=== PATIENT | female | born 1965 | race Caucasian/White ===

== ENCOUNTER 2016-11-06 22:39 | Emergency (ER) | payer MEDICARE ==
[~2016-11-06] VITALS: Ht 167.6 cm; Wt 77.3 kg
[2016-11-06 22:44] VITALS: BP 178/96; PULSE 94; RESP 18; O2SAT 94
[2016-11-06 23:22] VITALS: BP 150/91; PULSE 88; RESP 19; O2SAT 93
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
[2016-11-07 00:15] LABS: BASOPHILS % (AUTO) 0.7 % (0-3); EOSINOPHILS % (AUTO) 2.2 % (0-5); MONOCYTES % (AUTO) 9.4 % (4-12); Mean Corpuscular Hemoglobin 32.7 pg (27.0-35.0); Mean Corpuscular Volume 93.5 fL (81-100); NEUTROPHILS % (AUTO) 59.6 % (40-74); Platelet Count 306 bil/L (150-400)
[2016-11-07 01:40] VITALS: BP 155/90; PULSE 82; RESP 18; O2SAT 94
[2016-11-07 01:46] LABS: APPEARANCE,URINE CLOUDY (CLEAR,HAZY); COLOR,URINE RED (YELLOW); OCCULT BLOOD,URINE LARGE (NEGATIVE); UROBILINOGEN,URINE NORMAL (NORMAL)
--- NOTE | 2016-11-07 08:08 | DRSVH ---
PROCEDURE: X-RAY CHEST ONE VIEW, PORTABLE ([id number]) INDICATIONS: seizure TECHNIQUE: One view of the chest was acquired. COMPARISON: None. FINDINGS: Surgical changes and devices: None. Lungs and pleura: No pleural effusions or pneumothorax. Lungs are clear. Lung apices are not comple tely visualized and cannot be evaluated Mediastinum: Mediastinal contours appear normal. Heart size is normal. Bones and chest wall: No suspicious bony lesions. Overlying soft tissues appear unremarkable. IMPRESSION: No acute cardiopulmonary disease process identified in the visualized lungs. Dictated by: Juliet Christine MD, PhD on 11/07/2016 at 8:06 Approved by: Juliet Christine MD, PhD on 11/07/2016 at 8:07
--- NOTE | 2016-11-07 08:25 | DRSVH ---
PROCEDURE: CT BRAIN WITHOUT CONTRAST ([id number]) INDICATIONS: seizure, hit head TECHNIQUE: Noncontrast 4.5 mm thick angled axial sections acquired from the foramen magnum to the vertex, with c oronal reformats. COMPARISON: None. FINDINGS: Image quality: Excellent. CSF spaces: Basal cisterns are patent. No extra-axial fluid collections. Ventricles are normal in size and shape. Brain: No midline shift. No intracranial masses or hemorrhage. Kaur-white matter interface is norm al. Skull and face: Calvarium and visualized facial bones are intact, without suspicious lesions. There is subcutaneous hematoma in the posterior right parietal region. Sinuses: Visualized sinuses and mastoids are clear. IMPRESSION: No acute intracranial abnormality. Dictated by: Richard Latham M.D. on 11/07/2016 at 8:21 this report corresponds to the findings of e preliminary NSR report. Approved by: Richard Latham M.D. on 11/07/2016 at 8:23
== END 2016-11-07 01:45 | disposition home or self-care (01) ==
LOC: SED 22:39 → EDBD 22:39 → SED 11-07 01:45
DX: R56.9 Unspecified convulsions (principal); S00.03XA Contusion of scalp, initial encounter; W01.0XXA Fall on same level from slipping, tripping and stumbling without subsequent striking against object, initial encounter; Y93.89 Activity, other specified; Y99.8 Other external cause status; Y92.013 Bedroom of single-family (private) house as the place of occurrence of the external cause; I10 Essential (primary) hypertension; E78.5 Hyperlipidemia, unspecified; E07.9 Disorder of thyroid, unspecified; Z88.5 Allergy status to narcotic agent